=== PATIENT | male | born 1990 | race Two or more races ===

== ENCOUNTER 2018-05-16 21:48 | Emergency (ER) | payer OTHER ==
[~2018-05-16] VITALS: Ht 172.7 cm; Wt 99.8 kg
[~2018-05-16 21:48] MED LIST: ACYCLOVIR400 MG ORAL; ALBUTEROL SULF8.5 GM INH; AZITHROMYCIN250 MG ORAL; CLINDAMYCIN HC150 MG ORAL; IBUPROFEN600 MG ORAL
[2018-05-16 22:05] VITALS: BP 130/86
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
[2018-05-16] MEDS ORDERED: CYCLOBENZAPRINE10 MG ORAL (22:48)
[2018-05-16] MEDS ORDERED: IBUPROFEN800 M1 PO (22:48)
[2018-05-16 22:55] VITALS: BP 130/86
== END 2018-05-16 22:56 | disposition home or self-care (01) ==
LOC: EMR 22:17
DX: M54.2 Cervicalgia (principal); M54.9 Dorsalgia, unspecified; R51 Headache; V43.62XA Car passenger injured in collision with other type car in traffic accident, initial encounter; Y93.9 Activity, unspecified; Y92.9 Unspecified place or not applicable; Y99.9 Unspecified external cause status; Z88.0 Allergy status to penicillin
CPT/HCPCS: 99282

== ENCOUNTER 2018-09-12 18:59 | Emergency (ER) | payer OTHER ==
[~2018-09-12] VITALS: Ht 172.7 cm; Wt 104.3 kg
[~2018-09-12 18:59] MED LIST changes: +CYCLOBENZAPRINE10 MG ORAL; +IBUPROFEN800 M1 PO
[2018-09-12] MEDS ORDERED: NKM (19:14)
[2018-09-12 19:25] VITALS: BP 138/89
[2018-09-12] MEDS ORDERED: Norco 5mg/325mg tab ORAL ONE (19:30)
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
[2018-09-12] MEDS ORDERED: NORCO 5-325 TA1 EACH ORAL (20:54)
[2018-09-12] MEDS ORDERED: CLARITHROMYCIN500 MG PO (20:54)
[2018-09-12 21:10] VITALS: BP 140/87
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
== END 2018-09-12 21:10 | disposition home or self-care (01) ==
LOC: EMR 19:48
DX: S09.90XA Unspecified injury of head, initial encounter (principal); S20.212A Contusion of left front wall of thorax, initial encounter; Y04.2XXA Assault by strike against or bumped into by another person, initial encounter; Y92.410 Unspecified street and highway as the place of occurrence of the external cause; J32.9 Chronic sinusitis, unspecified; J45.909 Unspecified asthma, uncomplicated; Z88.0 Allergy status to penicillin
CPT/HCPCS: 70450; 70486; 71250; 99284

== ENCOUNTER 2019-03-15 23:19 | Emergency (ER) | payer OTHER ==
[~2019-03-15] VITALS: Ht 172.7 cm; Wt 99.8 kg
[~2019-03-15 23:19] MED LIST changes: +CLARITHROMYCIN500 MG PO; +NKM; +NORCO 5-325 TA1 EACH ORAL
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
[2019-03-15 23:50] VITALS: BP 118/76
[2019-03-16] MEDS ORDERED: Tetanus/Diptheria/Pertussis IM ONE (00:30)
[2019-03-16] MEDS ORDERED: Ketorolac 60mg Inj IM ONE (00:30)
[2019-03-16] MEDS ORDERED: Albuterol/Ipratropium 3ml neb HHN ONE (00:30)
[2019-03-16] MEDS ORDERED: Ketorolac 30mg Inj ONE (00:41)
[2019-03-16] MEDS ORDERED: HYDROcodone/Acetamin 5/325 tab ORAL ONE (01:00)
[2019-03-16] MEDS ORDERED: Neosporin Oint Ud Pkt TOPIC ONE (02:00)
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
[2019-03-16 03:00] VITALS: BP 129/84
[2019-03-16] MEDS ORDERED: CYCLOBENZAPRINE10 MG ORAL (03:38)
[2019-03-16] MEDS ORDERED: IBUPROFEN600 MG ORAL (03:38)
[2019-03-16 03:50] VITALS: BP 129/84
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
--- NOTE | 2019-03-16 11:10 | Diagnostic Imaging Report ---
Indication: left hand pain. Comparison: None Findings: 3 views of the left hand were obtained. Normal alignment is demonstrated. No acute fractures, erosions, or periosteal reaction are seen. Soft tissues are unremarkable. Impression: No acute findings.
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
== END 2019-03-16 03:50 | disposition home or self-care (01) ==
LOC: EMR 23:55
DX: S16.1XXA Strain of muscle, fascia and tendon at neck level, initial encounter (principal); S39.012A Strain of muscle, fascia and tendon of lower back, initial encounter; Z23 Encounter for immunization; Z88.0 Allergy status to penicillin; J45.909 Unspecified asthma, uncomplicated; R07.9 Chest pain, unspecified; R10.9 Unspecified abdominal pain; V43.62XA Car passenger injured in collision with other type car in traffic accident, initial encounter; Y92.410 Unspecified street and highway as the place of occurrence of the external cause; S69.92XA Unspecified injury of left wrist, hand and finger(s), initial encounter
CPT/HCPCS: 71250; 72125; 74176; 90471; 90715; 94640; 99284; J7620